=== PATIENT | female | born 1945 | race Caucasian/White ===

== ENCOUNTER 2017-01-19 07:52 | Day surgery (SDC) | payer OTHER, BC ==
[2017-01-16 12:44] VITALS: BMI 24.0
[2017-01-19] MEDS ORDERED: PROPOFOL 20 ML ONE ×2 (08:16)
[2017-01-19 09:56] VITALS: TEMP 98.2
[2017-01-19 10:30] VITALS: BP 105/65; PULSE 66
--- NOTE | 2017-01-20 14:47 | PATH ---
Surgical Pathology Report Patient Name: KYLIE WILEY [facility]. Rec. #: [id number] /Age/Gender: 1945 (Age: 71) / F Account: [id number] Location: [facility]-ENDOSCOPY Taken: 01/19/2017 Received: 01/19/2017 Reported: 01/20/2017 Physicians: Ty Briscoe M.D. Specimen(s) Received POLYP SIGMOID Clinical History Routine screening Colon polyp Final Diagnosis SIGMOID, BIOPSY: TUBULAR ADENOMA. Electronically Signed Marisabel Jacobsen M.D. Gross Description Received in formalin, labeled "sigmoid polyp" is a zhang, polypoid portion of soft tissue measuring 0.4 cm. in greatest dimension. The specimen is submitted in toto in one cassette. /01/19/201701/19/2017
== END 2017-01-19 10:25 | disposition home or self-care (01) ==
LOC: FASU-ENDO 07:52
PROVIDERS: ATTEND Internal Medicine Gastroenterology
PROC: 0DBN8ZX Excision of Sigmoid Colon, Via Natural or Artificial Opening Endoscopic, Diagnostic (ICD-10-PCS; principal; 2017-01-19 09:13)
DX: Z80.0 Family history of malignant neoplasm of digestive organs (principal); D12.5 Benign neoplasm of sigmoid colon; Z83.71 Family history of colonic polyps
CPT/HCPCS: 88305-TC